=== PATIENT | female | born 1960 | race African-American/Black ===

== ENCOUNTER 2017-08-18 23:42 | Observation (INO) ==
[2017-08-19 03:41] LABS: Basophils % 0.4 % (0.0-0.8); Eosinophils # 0.8 10*3/uL (0.0-0.87); Eosinophils % 11.7 % (0.00-10.9); Hematocrit 33.5 VOL% (35.7-47.0); Hemoglobin 10.8 GM/DL (12.0-16.0); Immature Granulocytes % 0.3 %; Immature Granulocytes Absolute 0.02 #; Lymphocytes # 3.1 10*3/uL (1.4-4.0); Lymphocytes % 44.2 % (21.3-54.2); Mean Corpuscular HGB Conc 32.2 GM/DL (32-36); Mean Corpuscular Hemoglobin 22 PG (27-34); Mean Corpuscular Volume 69.1 FL (87-102); Mean Platelet Volume 10.1 FL (9.6-12.0); Monocytes # 0.6 10*3/uL (0.11-0.8); Monocytes % 9.2 % (1.7-12.7); Neutrophils # 2.4 10*3/uL (1.4-7.4); Neutrophils % 34.2 % (38.7-73.9); Platelet Count 308 T/CUMM (130-400); Red Blood Count 4.85 MC/CUMM (3.8-5.5); Red Cell Distribution Width 15.7 % (9.3-17.3); White Blood Count 6.9 T/CUMM (4-12)
[2017-08-19 03:52] LABS: INR 0.9; Partial Thromboplastin Time 29.8 SECS (0-40)
[2017-08-19 04:01] LABS: Apearance,Urine CLEAR (Clear); Bilirubin,Urine Negative (Negative); Blood, Urine Negative (Negative); Glucose,Urine (UA) Negative (Negative); Ketones,Urine Negative (Negative); Nitrite,Urine Negative (Negative); Protein,Urine Negative; Squamous Epithelial Cell,Urine Occasional /HPF (0-10); Urine Color Straw (Yellow); Urine Specific Gravity 1.005 (1.001-1.035); Urine Urobilinogen < 2.0 EU/DL (0.2-1.0); WBC,Urine <1 /HPF (0-6)
[2017-08-19 04:07] LABS: Barbiturates Screen,Urine Negative (Negative); Benzodiazepines Screen,Urine Negative (Negative); Cannabinoid Screen,Urine Negative (Negative); Opiate Screen,Urine Negative (Negative); Phencyclidine Screen,Urine Negative (Negative)
[2017-08-19 04:10] LABS: Anisocytosis 1+; Band Neutrophils 6 % (0-10); Eosinophils 12 % (0-10); Lymphocytes 43 % (20-55); Ovalocytes 1+; Segmented Neutrophils 38 % (50-85); Total Cells Counted 100
[2017-08-19 04:11] LABS: Platelet Estimate Normal; Tear Drop Cells Few
[2017-08-19 04:13] LABS: Alanine Aminotransferase 24 U/L (13-56); Albumin 3.9 G/DL (3.4-5.0); Alkaline Phosphatase 63 U/L (45-117); Aspartate Amino Transferase 13 U/L (0-37); Bilirubin,Total < 0.39 MG/DL (0.2-1.0); Blood Urea Nitrogen 25 MG/DL (7-18); Calcium 8.8 MG/DL (8.5-10.1); Glucose 126 MG/DL (74-106); Osmolality,Calculated 284.4 MOS/KG (273-304); Potassium 3.9 MMOL/L (3.5-5.1); Sodium 140 MMOL/L (136-145); Total Protein 7.7 G/DL (6.4-8.3)
[2017-08-19] MEDS ORDERED: ONDANSETRON 4 MG/2 ML VIAL IV PRN (09:02)
[2017-08-19] MEDS ORDERED: ACETAMINOPHEN 325 MG TABLET PO PRN (09:02)
[2017-08-19] MEDS ORDERED: PANTOPRAZOLE 40 MG TABLET PO SCH (09:30)
[2017-08-19] MEDS ORDERED: ENOXAPARIN 40 MG/0.4 ML SYRINGE SUBCUT SCH (09:30)
[2017-08-19] MEDS ORDERED: ASPIRIN EC 325 MG TABLET PO SCH (09:30)
[2017-08-19] MEDS ORDERED: amLODIPine 10 MG TABLET PO SCH (12:00)
[2017-08-19] MEDS ORDERED: TORSEMIDE 20 MG TABLET PO SCH (12:00)
[2017-08-19] MEDS ORDERED: MULTIVITAMIN (CENTRUM) TABLET PO SCH (12:00)
[2017-08-19] MEDS ORDERED: CETIRIZINE 10 MG TABLET PO SCH (12:00)
[2017-08-19] MEDS ORDERED: ROSUVASTATIN 20 MG TABLET PO SCH (12:00)
[2017-08-19] MEDS ORDERED: LISINOPRIL/HCTZ 20-25 MG TABLET PO SCH (12:00)
[2017-08-19 16:01] VITALS: BP 105/56
[2017-08-19 16:48] LABS: Risk Ratio 2.68; VLDL CHOLESTEROL 20.8 MG/DL
== END 2017-08-19 20:15 | disposition home or self-care (01) ==
LOC: N.ED 23:42 → INTOOBSV 08-19 08:34 → N.EDINP 08-19 08:34 → N.4E 08-19 11:12
PROVIDERS: ADMIT Internal Medicine; ATTEND Internal Medicine